=== PATIENT | female | born 1950 | race Caucasian/White ===

== ENCOUNTER 2017-01-26 17:04 | Emergency (ER) | payer SELFPAY ==
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
--- NOTE | 2017-01-27 11:38 | Diagnostic Imaging Report ---
CT scan of the pelvis HISTORY: Pain, trauma Total DLP equals 293 CTDI equals 9.2 Axial sections were obtained to the pelvis. Additional coronal and sagittal reformatted images are provided. Hip joints appear normal. No acute abnormalities. No fractures. No other focal bony abnormalities seen within the pelvis. No abnormal soft tissue masses or fluid collections seen within the confines of the pelvis. IMPRESSION: No acute abnormalities
--- NOTE | 2017-01-27 11:39 | Diagnostic Imaging Report ---
Left knee (2 views) HISTORY: Pain, trauma No acute bony abnormalities. No fractures. Joint spaces appear normal. IMPRESSION: No acute abnormalities
--- NOTE | 2017-01-27 11:39 | Diagnostic Imaging Report ---
Right hip (3 views) HISTORY: Pain, trauma No acute bony abnormalities are seen. No fractures. Femoral head exhibits a normal contour. Joint spaces maintained. IMPRESSION: No acute bony abnormalities In the presence of recent trauma and persistent symptoms, a repeat radiograph in 5-7 days may be helpful for detection of a subtle or occult fracture.
== END 2017-01-26 19:05 | disposition home or self-care (01) ==
LOC: ER 17:04
DX: S70.01XA Contusion of right hip, initial encounter (principal); S80.02XA Contusion of left knee, initial encounter; V89.2XXA Person injured in unspecified motor-vehicle accident, traffic, initial encounter; Y93.89 Activity, other specified; Y92.488 Other paved roadways as the place of occurrence of the external cause; Y99.8 Other external cause status
CPT/HCPCS: 72192-TC; 73560-TC-LT; Z7502